=== PATIENT | male | born 1990 | race Caucasian/White ===

== ENCOUNTER 2022-03-16 21:46 | Emergency (ER) | payer OTHER ==
[2022-03-16 21:48] VITALS: BP 139/86
== END 2022-03-16 22:36 | disposition left against medical advice (07) ==
LOC: EDH 21:46
DX: F10.129 Alcohol abuse with intoxication, unspecified (principal); Z53.21 Procedure and treatment not carried out due to patient leaving prior to being seen by health care provider; Y90.8 Blood alcohol level of 240 mg/100 ml or more